=== PATIENT | female | born 1990 | race Asian ===

== ENCOUNTER 2018-12-06 22:20 | Emergency (ER) | payer SELFPAY ==
[~2018-12-06] VITALS: Ht 157.5 cm; Wt 64.0 kg
[2018-12-06 22:26] VITALS: Ht 157.5 cm; Wt 64.0 kg
[2018-12-06 23:24] VITALS: BP 125/73
== END 2018-12-06 23:24 | disposition home or self-care (01) ==
LOC: ED 22:20
DX: S20.319A Abrasion of unspecified front wall of thorax, initial encounter (principal); S10.91XA Abrasion of unspecified part of neck, initial encounter; S60.512A Abrasion of left hand, initial encounter; S60.511A Abrasion of right hand, initial encounter; Y04.2XXA Assault by strike against or bumped into by another person, initial encounter; Y93.89 Activity, other specified; Y92.89 Other specified places as the place of occurrence of the external cause; Y99.8 Other external cause status